=== PATIENT | female | born 1955 | race American Indian/Alaskan Native ===

== ENCOUNTER 2020-02-20 07:23 | Emergency (ER) | payer SELFPAY ==
[2020-02-20] MEDS ORDERED: MINERAL OIL/PETROLATUM, WHITE OPHTH OINT 3.5 GM OU PRN (07:46)
[2020-02-20] MEDS ORDERED: LIP THERAPY VASELINE TP PRN (07:46)
--- NOTE | 2020-02-20 07:52 | Emergency Department Report ---
HPI - General Chief Complaint: Cardiac Arrest/CPR Time Seen by Provider: 02/20/20 07:45 - HPI HPI: 64-year-old -[place]ov[place] female presents to the emergency department via EMS from home in cardiac arrest. Patient was in bed with her when the heard her drop her phone. He started talking to her about picking her phone up off the floor and she looked altered and he thought that she was having a stroke. He called 911 but she became even less responsive and by the time EMS got there she was pulseless and was not breathing. EMS gave her bag valve ventilation, chest compressions, and 2 rounds of epinephrine with some sodium bicarbonate, as part of ACLS. They were working her for about 15 minutes prior to arrival in our emergency department. She has a past medical history of diabetes and previous TIA. ED Past Medical Hx - Past Medical History Previous Medical History?: Yes Hx Diabetes: Yes Additional medical history: TIA - Surgical History Past Surgical History?: Yes Additional Surgical History: Gastric bypass, breast reduction - Social History Smoking Status: Never Smoker Substance Use Type: None ED Review of Systems ROS: Stated complaint: CARDIAC ARREST Other details as noted in HPI Comment: Unobtainable due to pts medical conditions Physical Exam - Physical Exam Physical Exam: GENERAL: Patient is ill-appearing and unresponsive. HENT: Normocephalic. Atraumatic. EYES: Pupils are fixed and dilated. NECK: Supple. Trachea appears midline. CHEST/LUNGS: There are no spontaneous respirations. HEART/CARDIOVASCULAR: There are no spontaneous heart sounds. ABDOMEN: Abdomen is soft. There is no abdominal distention. SKIN: Skin is cool but dry. NEURO: Unresponsive. Does not withdraw to painful stimuli. Does not follow any commands. MUSCULOSKELETAL: There is no obvious deformity. There is no evidence of acute injury. No palpable femoral or radial pulses. ED Course - Reevaluation(s) Reevaluation #1: 02/20/20 14:04 Lab Results 02/20/20 02/20/20 02/20/20 Range/Units 07:45 07:45 07:45 WBC 9.0 (4.5-11.0) K/mm3 RBC 4.55 (3.65-5.03) M/mm3 Hgb 10.7 (10.1-14.3) gm/dl Hct 36.3 (30.3-42.9) % MCV 80 (79-97) fl MCH 24 L (28-32) pg MCHC 30 (30-34) % RDW 14.9 (13.2-15.2) % Plt Count 210 (140-440) K/mm3 Lymph # Final Inspector And Tester Add Manual Diff Complete Total Counted 100 Seg Neuts % (Manual) 28.0 L (40.0-70.0) % Band Neutrophils % 3.0 % Lymphocytes % (Manual) 57.0 H (13.4-35.0) % Reactive Lymphs % (Man) 1.0 % Monocytes % (Manual) 4.0 (0.0-7.3) % Eosinophils % (Manual) 2.0 (0.0-4.3) % Basophils % (Manual) 0 (0.0-1.8) % Metamyelocytes % 5.0 % Myelocytes % 0 % Promyelocytes % 0 % Blast Cells % 0 % Nucleated RBC % Not Reportable Seg Neutrophils # Man 2.5 (1.8-7.7) K/mm3 Band Neutrophils # 0.3 K/mm3 Lymphocytes # (Manual) 5.1 (1.2-5.4) K/mm3 Abs React Lymphs (Man) 0.1 K/mm3 Monocytes # (Manual) 0.4 (0.0-0.8) K/mm3 Eosinophils # (Manual) 0.2 (0.0-0.4) K/mm3 Basophils # (Manual) 0.0 (0.0-0.1) K/mm3 Metamyelocytes # 0.5 K/mm3 Myelocytes # 0.0 K/mm3 Promyelocytes # 0.0 K/mm3 Blast Cells # 0.0 K/mm3 WBC Morphology Not Reportable Hypersegmented Neuts Not Reportable Hyposegmented Neuts Not Reportable Hypogranular Neuts Not Reportable Smudge Cells Not Reportable Toxic Granulation Not Reportable Toxic Vacuolation Not Reportable Dohle Bodies Not Reportable Pelger-Huet Anomaly Not Reportable Hugh Rods Not Reportable Platelet Estimate Consistent w auto Clumped Platelets Not Reportable Plt Clumps, EDTA Not Reportable Large Platelets Not Reportable Giant Platelets Not Reportable Platelet Satelliting Not Reportable Plt Morphology Comment Not Reportable RBC Morphology Normal Dimorphic RBCs Not Reportable Polychromasia Not Reportable Hypochromasia Not Reportable Poikilocytosis Not Reportable Anisocytosis Not Reportable Microcytosis Not Reportable Macrocytosis Not Reportable Spherocytes Not Reportable Pappenheimer Bodies Not Reportable Sickle Cells Not Reportable Target Cells Not Reportable Tear Drop Cells Not Reportable Ovalocytes Not Reportable Helmet Cells Not Reportable [place] Bodies Not Reportable [place] Rings Not Reportable [place] Cells Not Reportable Bite Cells Not Reportable Crenated Cell Not Reportable Elliptocytes Not Reportable Acanthocytes (Spur) Not Reportable Rouleaux Not Reportable Hemoglobin C Crystals Not Reportable Schistocytes Not Reportable Malaria parasites Not Reportable Jagjit Bodies Not Reportable Hem Pathologist Commnt No PT 15.4 H (12.2-14.9) Sec. INR 1.20 H (0.87-1.13) APTT 37.9 H (24.2-36.6) Sec. Sodium 136 L (137-145) mmol/L Potassium 4.0 (3.6-5.0) mmol/L Chloride 100.8 (98-107) mmol/L Carbon Dioxide 12 L (22-30) mmol/L Anion Gap 27 mmol/L BUN 23 H (7-17) mg/dL Creatinine 1.4 H (0.7-1.2) mg/dL Estimated GFR 46 ml/min BUN/Creatinine Ratio 16 % Glucose 405 H (65-100) mg/dL Lactic Acid (0.7-2.0) mmol/L Calcium 9.5 (8.4-10.2) mg/dL Total Bilirubin 0.30 (0.1-1.2) mg/dL AST 514 H (5-40) units/L ALT 388 H (7-56) units/L Alkaline Phosphatase 205 H (35-129) units/L Troponin T < 0.010 (0.00-0.029) ng/mL Total Protein 5.3 L (6.3-8.2) g/dL Albumin 3.0 L (3.9-5) g/dL Albumin/Globulin Ratio 1.3 % TSH (0.270-4.200) mlU/mL Urine Color (Yellow) Urine Turbidity (Clear) Urine pH (5.0-7.0) Ur Specific [place] (1.003-1.030) Urine Protein (Negative) mg/dL Urine Glucose (UA) (Negative) mg/dL Urine Ketones (Negative) mg/dL Urine Blood (Negative) Urine Nitrite (Negative) Urine Bilirubin (Negative) Urine Urobilinogen (<2.0) mg/dL Ur Leukocyte Esterase (Negative) Urine WBC (Auto) (0.0-6.0) /HPF Urine RBC (Auto) (0.0-6.0) /HPF Urine Bacteria (Auto) (Negative) /HPF Urine Opiates Screen Urine Methadone Screen Ur Barbiturates Screen Ur Phencyclidine Scrn Ur Amphetamines Screen U Benzodiazepines Scrn Urine Cocaine Screen U Marijuana (THC) Screen Drugs of Abuse Note Plasma/Serum Alcohol (0-0.07) % 02/20/20 02/20/20 02/20/20 Range/Units 07:45 07:45 08:41 WBC (4.5-11.0) K/mm3 RBC (3.65-5.03) M/mm3 Hgb (10.1-14.3) gm/dl Hct (30.3-42.9) % MCV (79-97) fl MCH (28-32) pg MCHC (30-34) % RDW (13.2-15.2) % Plt Count (140-440) K/mm3 Lymph # Add Manual Diff Total Counted Seg Neuts % (Manual) (40.0-70.0) % Band Neutrophils % % Lymphocytes % (Manual) (13.4-35.0) % Reactive Lymphs % (Man) % Monocytes % (Manual) (0.0-7.3) % Eosinophils % (Manual) (0.0-4.3) % Basophils % (Manual) (0.0-1.8) % Metamyelocytes % % Myelocytes % % Promyelocytes % % Blast Cells % % Nucleated RBC % Seg Neutrophils # Man (1.8-7.7) K/mm3 Band Neutrophils # K/mm3 Lymphocytes # (Manual) (1.2-5.4) K/mm3 Abs React Lymphs (Man) K/mm3 Monocytes # (Manual) (0.0-0.8) K/mm3 Eosinophils # (Manual) (0.0-0.4) K/mm3 Basophils # (Manual) (0.0-0.1) K/mm3 Metamyelocytes # K/mm3 Myelocytes # K/mm3 Promyelocytes # K/mm3 Blast Cells # K/mm3 WBC Morphology Hypersegmented Neuts Hyposegmented Neuts Hypogranular Neuts Smudge Cells Toxic Granulation Toxic Vacuolation Dohle Bodies Pelger-Huet Anomaly Hugh Rods Platelet Estimate Clumped Platelets Plt Clumps, EDTA Large Platelets Giant Platelets Platelet Satelliting Plt Morphology Comment RBC Morphology Dimorphic RBCs Polychromasia Hypochromasia Poikilocytosis Anisocytosis Microcytosis Macrocytosis Spherocytes Pappenheimer Bodies Sickle Cells Target Cells Tear Drop Cells Ovalocytes Helmet Cells [place] Bodies [place] Rings [place] Cells Bite Cells Crenated Cell Elliptocytes Acanthocytes (Spur) Rouleaux Hemoglobin C Crystals Schistocytes Malaria parasites Jagjit Bodies Hem Pathologist Commnt PT (12.2-14.9) Sec. INR (0.87-1.13) APTT (24.2-36.6) Sec. Sodium (137-145) mmol/L Potassium (3.6-5.0) mmol/L Chloride (98-107) mmol/L Carbon Dioxide (22-30) mmol/L Anion Gap mmol/L BUN (7-17) mg/dL Creatinine (0.7-1.2) mg/dL Estimated GFR ml/min BUN/Creatinine Ratio % Glucose (65-100) mg/dL Lactic Acid (0.7-2.0) mmol/L Calcium (8.4-10.2) mg/dL Total Bilirubin (0.1-1.2) mg/dL AST (5-40) units/L ALT (7-56) units/L Alkaline Phosphatase (35-129) units/L Troponin T (0.00-0.029) ng/mL Total Protein (6.3-8.2) g/dL Albumin (3.9-5) g/dL Albumin/Globulin Ratio % TSH 5.170 H (0.270-4.200) mlU/mL Urine Color Straw (Yellow) Urine Turbidity Slightly-cloudy (Clear) Urine pH 7.0 (5.0-7.0) Ur Specific [place] 1.006 (1.003-1.030) Urine Protein 100 mg/dl (Negative) mg/dL Urine Glucose (UA) >=500 (Negative) mg/dL Urine Ketones Neg (Negative) mg/dL Urine Blood Mod (Negative) Urine Nitrite Neg (Negative) Urine Bilirubin Neg (Negative) Urine Urobilinogen < 2.0 (<2.0) mg/dL Ur Leukocyte Esterase Neg (Negative) Urine WBC (Auto) 23.0 H (0.0-6.0) /HPF Urine RBC (Auto) 35.0 (0.0-6.0) /HPF Urine Bacteria (Auto) 1+ (Negative) /HPF Urine Opiates Screen Urine Methadone Screen Ur Barbiturates Screen Ur Phencyclidine Scrn Ur Amphetamines Screen U Benzodiazepines Scrn Urine Cocaine Screen U Marijuana (THC) Screen Drugs of Abuse Note Plasma/Serum Alcohol < 0.01 (0-0.07) % 02/20/20 02/20/20 Range/Units 08:41 09:05 WBC (4.5-11.0) K/mm3 RBC (3.65-5.03) M/mm3 Hgb (10.1-14.3) gm/dl Hct (30.3-42.9) % MCV (79-97) fl MCH (28-32) pg MCHC (30-34) % RDW (13.2-15.2) % Plt Count (140-440) K/mm3 Lymph # Add Manual Diff Total Counted Seg Neuts % (Manual) (40.0-70.0) % Band Neutrophils % % Lymphocytes % (Manual) (13.4-35.0) % Reactive Lymphs % (Man) % Monocytes % (Manual) (0.0-7.3) % Eosinophils % (Manual) (0.0-4.3) % Basophils % (Manual) (0.0-1.8) % Metamyelocytes % % Myelocytes % % Promyelocytes % % Blast Cells % % Nucleated RBC % Seg Neutrophils # Man (1.8-7.7) K/mm3 Band Neutrophils # K/mm3 Lymphocytes # (Manual) (1.2-5.4) K/mm3 Abs React Lymphs (Man) K/mm3 Monocytes # (Manual) (0.0-0.8) K/mm3 Eosinophils # (Manual) (0.0-0.4) K/mm3 Basophils # (Manual) (0.0-0.1) K/mm3 Metamyelocytes # K/mm3 Myelocytes # K/mm3 Promyelocytes # K/mm3 Blast Cells # K/mm3 WBC Morphology Hypersegmented Neuts Hyposegmented Neuts Hypogranular Neuts Smudge Cells Toxic Granulation Toxic Vacuolation Dohle Bodies Pelger-Huet Anomaly Hugh Rods Platelet Estimate Clumped Platelets Plt Clumps, EDTA Large Platelets Giant Platelets Platelet Satelliting Plt Morphology Comment RBC Morphology Dimorphic RBCs Polychromasia Hypochromasia Poikilocytosis Anisocytosis Microcytosis Macrocytosis Spherocytes Pappenheimer Bodies Sickle Cells Target Cells Tear Drop Cells Ovalocytes Helmet Cells [place] Bodies [place] Rings [place] Cells Bite Cells Crenated Cell Elliptocytes Acanthocytes (Spur) Rouleaux Hemoglobin C Crystals Schistocytes Malaria parasites Jagjit Bodies Hem Pathologist Commnt PT (12.2-14.9) Sec. INR (0.87-1.13) APTT (24.2-36.6) Sec. Sodium (137-145) mmol/L Potassium (3.6-5.0) mmol/L Chloride (98-107) mmol/L Carbon Dioxide (22-30) mmol/L Anion Gap mmol/L BUN (7-17) mg/dL Creatinine (0.7-1.2) mg/dL Estimated GFR ml/min BUN/Creatinine Ratio % Glucose (65-100) mg/dL Lactic Acid 4.70 H* (0.7-2.0) mmol/L Calcium (8.4-10.2) mg/dL Total Bilirubin (0.1-1.2) mg/dL AST (5-40) units/L ALT (7-56) units/L Alkaline Phosphatase (35-129) units/L Troponin T (0.00-0.029) ng/mL Total Protein (6.3-8.2) g/dL Albumin (3.9-5) g/dL Albumin/Globulin Ratio % TSH (0.270-4.200) mlU/mL Urine Color (Yellow) Urine Turbidity (Clear) Urine pH (5.0-7.0) Ur Specific [place] (1.003-1.030) Urine Protein (Negative) mg/dL Urine Glucose (UA) (Negative) mg/dL Urine Ketones (Negative) mg/dL Urine Blood (Negative) Urine Nitrite (Negative) Urine Bilirubin (Negative) Urine Urobilinogen (<2.0) mg/dL Ur Leukocyte Esterase (Negative) Urine WBC (Auto) (0.0-6.0) /HPF Urine RBC (Auto) (0.0-6.0) /HPF Urine Bacteria (Auto) (Negative) /HPF Urine Opiates Screen Presumptive negative Urine Methadone Screen Presumptive negative Ur Barbiturates Screen Presumptive negative Ur Phencyclidine Scrn Presumptive negative Ur Amphetamines Screen Presumptive negative U Benzodiazepines Scrn Presumptive negative Urine Cocaine Screen Presumptive negative U Marijuana (THC) Screen Presumptive negative Drugs of Abuse Note Disclamer Plasma/Serum Alcohol (0-0.07) % - Consultations Consultation #1: I spoke with the neurosurgery attending at [facility], Dr. Newman. Dr. Newman looked at the CT imaging results and listen to the case presentation. He does not feel that it is consistent with an actual subdural hemorrhage and has the appearance of advanced anoxic brain injury. He did not feel that this patient is a neurosurgical candidate. 02/20/20 12:13 - ABG Interpretation Ph: 7.366 PCO2: 24 PO2: 410 Bicarbonate: 14 Interpretation: respiratory alkalosis, metabolic acidosis - Central Line Placement Right Femoral Consent Obtained: emergent situation Patient Placed on Monitor/Pulse Ox: Yes MD Prep: mask, gown, gloves Central Line Prep: Chlorhexidine scrub Ultrasound Used for Placement: No Central Line Lumen Inserted: triple Central Line Position: good blood return, all ports aspirated, flus, sutured in place with nyl Dressing Applied: Tegaderm, sterile gauze/tape Patient Tolerated Procedure: well Complications: none - Intubation Time Out Performed: No Sedative: none Laryngoscope: other ([place] scope) Size: 4 ET Tube Size: 7 Tube Secured Depth (cm): 24 Tube Secured Location: lips Tube Placement Confirmation: visualized tube passing t, equal breath sounds bilat, confirmation by capnometr Intubation Complications: none ED Medical Decision Making - Lab Data Result diagrams: 02/20/20 07:45 02/20/20 07:45 - EKG Data -: EKG Interpreted by Me - EKG Data Interpretation: other (Atrial fibrillation, rate of 98 bpm, normal axis, T wave inversions to the anterior and lateral leads, ST depressions to anterior leads) - Radiology Data Radiology results: report reviewed, image reviewed interpreted by me: Chest x-ray shows some mild interstitial edema. ET tube is in appropriate position. CT head/brain wo con INDICATION / CLINICAL INFORMATION: Altered mental status. TECHNIQUE: All CT scans at this location are performed using CT dose reduction for ALARA by means of automated exposure control. COMPARISON: None available. FINDINGS: There appears to be diffuse subarachnoid hemorrhage present. Ventricle size is very small. There is poor differentiation of the brown-white matter. No midline shift is seen. Visualized paranasal sinuses are clear. IMPRESSION: Diffuse subarachnoid hemorrhage with very small ventricles and poor differentiation of the brown-white junction. - Medical Decision Making This patient presents to the emergency department as a cardiac arrest from home. We did 1 round of ACLS protocol and had return of spontaneous circulation. In that time, I intubated the patient. Shortly after ROSC I also placed a central line venous catheter. Chest x-ray shows some pulmonary vascular congestion and appropriate placement of the ET tube. Patient's labs show some renal insufficiency, lactic acidosis, transaminitis consistent with shock liver, hyperglycemia, and a mild urinary tract infection. The patient has received IV fluid resuscitation and intermittently has been on pressors. She was given a dose of Rocephin for the urinary tract infection, IV insulin for the hyperglycemia. Patient had a CT scan of the head without contrast that came back showing diffuse subarachnoid hemorrhage. As per the consultation section, I spoke with the neurosurgery attending who says that this is too advanced for any surgical intervention and does not require transfer. I spoke to the patient's and sister and updated them regarding all the lab and imaging results, as well as the plan for admission to the ICU. Patient was accepted for admission by the hospitalist, Dr Dominguez. Critical Care Time: Yes Critical care time in (mins) excluding proc time.: 75 Critical care attestation.: If time is entered above; I have spent that time in minutes in the direct care of this critically ill patient, excluding procedure time. Critical care time was spent on this patient in doing her initial evaluation, multiple re- evaluations, ordering and interpretation of labs and imaging, discussion with the [facility] neurosurgery attending, discussion with the patient's family, titration of pressors, multiple IV medications. This does not include the time spent doing the intubation and central line procedures. Critical Care Time: 75 minutes ED Disposition Clinical Impression: Cardiac arrest, Subarachnoid hemorrhage, Shock liver Acute respiratory failure Qualifiers: Respiratory failure complication: hypoxia Qualified Code(s): J96.01 - Acute respiratory failure with hypoxia Hypotension Qualifiers: Hypotension type: unspecified hypotension type Qualified Code(s): I95.9 - Hypotension, unspecified Disposition: DC-09 OP ADMIT IP TO THIS HOSP Is pt being admited?: Yes Condition: Critical Time of Disposition: 13:09
[2020-02-20] MEDS ORDERED: NORepinephrine/NS 4 MG-250 ML 4 MG/250 ML BAG IV ONE (07:57)
[2020-02-20 08:22] LABS: Alanine Aminotransferase 388 units/L (7-56); BUN/Creatinine Ratio 16; Blood Urea Nitrogen 23 mg/dL (7-17); Calcium 9.5 mg/dL (8.4-10.2); Hemolysis Index 17
[2020-02-20 08:23] LABS: INR 1.2 (0.87-1.13)
[2020-02-20 08:24] LABS: Partial Thromboplastin Time 37.9 Sec. (24.2-36.6)
[2020-02-20] MEDS ORDERED: INSULIN REGULAR, HUMAN 100 UNITS/1 ML IV ONE (08:31)
[2020-02-20] MEDS ORDERED: SODIUM CHLORIDE 0.9% 1000 ML 1,000 ML IV ONE (08:44)
[2020-02-20] MEDS ORDERED: NORepinephrine/NS 4 MG-250 ML 4 MG/250 ML BAG IV SCH (09:00)
[2020-02-20 09:01] LABS: Hemoglobin 10.7 gm/dl (10.1-14.3)
[2020-02-20 09:04] LABS: Red Blood Count 4.55 M/mm3 (3.65-5.03)
[2020-02-20 09:05] LABS: Hematocrit 36.3 % (30.3-42.9); Mean Corpuscular HGB Conc 30 % (30-34); Mean Corpuscular Volume 80 fl (79-97); Platelet Count 210 K/mm3 (140-440); Red Cell Distribution Width 14.9 % (13.2-15.2)
--- NOTE | 2020-02-20 10:20 | XRay Report ---
CHEST 1 VIEW INDICATION / CLINICAL INFORMATION: ETT placement. COMPARISON: None available. FINDINGS: SUPPORT DEVICES: Endotracheal tube, nasogastric tube HEART / MEDIASTINUM: No significant abnormality. LUNGS / PLEURA: Mild diffuse interstitial pulmonary edema No pneumothorax. ADDITIONAL FINDINGS: No significant additional findings. IMPRESSION: There is mild diffuse interstitial pulmonary edema present. Endotracheal tube is in good position Signer Name: Gorge Ocampo MD FACStephen Signed: 02/20/2020 10:15 AM Workstation Name: [id number]
--- NOTE | 2020-02-20 10:43 | Cat Scan Report ---
CT head/brain wo con INDICATION / CLINICAL INFORMATION: Altered mental status. TECHNIQUE: All CT scans at this location are performed using CT dose reduction for ALARA by means of automated e xposure control. COMPARISON: None available. FINDINGS: There appears to be diffuse subarachnoid hemorrhage present. Ventricle size is very small. There is p oor differentiation of the brown-white matter. No midline shift is seen. Visualized paranasal sinuses are clear. IMPRESSION: Diffuse subarachnoid hemorrhage with very small ventricles and poor differentiation of the brown-white junction. This is a positive critical result discovered at 0934 hours and personally communicated to Sierra Muse the charge nurse at 0937 hours Signer Name: Gorge Ocampo MD FACR Signed: 02/20/2020 10:38 AM Workstation Name: [id number]
[2020-02-20 10:54] LABS: Total Cells Counted 100
[2020-02-20 10:55] LABS: Band Neutrophils # (Manual) 0.3 K/mm3; Basophils % (Manual) 0 % (0.0-1.8); Platelet Estimate Consistent w Auto; RBC Morphology Normal
[2020-02-20 11:18] LABS: Bacteria,Urine 1+ /HPF (Negative); Bilirubin,Urine NEG (Negative); Blood,Urine MOD (Negative); Color,Urine Straw (Yellow); Urobilinogen,Urine < 2.0 mg/dL (<2.0)
[2020-02-20 11:24] LABS: Amphetamine Screen,Urine PRESUMPTIVE NEGATIVE; Benzodiazepines Screen,Urine PRESUMPTIVE NEGATIVE; Cannabinoid Screen,Urine PRESUMPTIVE NEGATIVE; Cocaine Screen,Urine PRESUMPTIVE NEGATIVE; Methadone Screen,Urine PRESUMPTIVE NEGATIVE; Opiate Screen,Urine PRESUMPTIVE NEGATIVE
[2020-02-20] MEDS ORDERED: cefTRIAXone/NS 1 GM/50 ML 1 GM/50 ML BAG IV ONE (11:50)
[2020-02-20] MEDS ORDERED: SODIUM CHLORIDE 0.9% 1000 ML 1,000 ML ONE ×2 (13:13→15:52)
[2020-02-20 13:41] LABS: ABG Base Excess -9.7 mmol/L (-2.0-3.0); ABG Methemoglobin 0.3 % (0.0-1.5); ABG Oxygen Saturation 99.5 % (95.0-99.0); ABG PCO2 24.9 mm Hg; ABG PH 7.366 pH Units (7.350-7.450)
[2020-02-20 13:45] LABS: ABG PO2 410.7 mm Hg (80.0-90.0)
--- NOTE | 2020-02-20 20:44 | History and Physical Report ---
History of Present Illness Date of examination: 02/20/20 Date of admission: 02/20/20 13:09 Medications and Allergies Allergies Allergy/AdvReac Type Severity Reaction Status Date / Time No Known Allergies Allergy Verified 02/20/20 08:40 Active Meds: Active Medications Hydrophilic Ointment (Vaseline Lip Therapy) 1 applic TP Q2HR PRN PRN Reason: Dry Lips Norepinephrine (Levophed Drip 4 Mg/Ns 250 Ml) 4 mg in 250 mls @ 7.5 mls/hr IV TITR CARLOS; Protocol Last Titration: 02/20/20 13:57 Dose: 4 mcg/min, 15 mls/hr Documented by: Multi-Ingred Cream/Lotion/Oil/Oint (Artificial Tears Ophth Oint) 1 applic OU Q4HR PRN PRN Reason: Dry Eye(s) Exam - Constitutional Vitals: Temp Pulse Resp BP Pulse Ox 95.4 F L 106 H 18 87/59 100 02/20/20 08:38 02/20/20 20:00 02/20/20 20:00 02/20/20 20:00 02/20/20 20:00 Results - Labs CBC & Chem 7: 02/20/20 07:45 02/20/20 07:45 Labs: Laboratory Last Values WBC 9.0 K/mm3 (4.5-11.0) 02/20/20 07:45 RBC 4.55 M/mm3 (3.65-5.03) 02/20/20 07:45 Hgb 10.7 gm/dl (10.1-14.3) 02/20/20 07:45 Hct 36.3 % (30.3-42.9) 02/20/20 07:45 MCV 80 fl (79-97) 02/20/20 07:45 MCH 24 pg (28-32) L 02/20/20 07:45 MCHC 30 % (30-34) 02/20/20 07:45 RDW 14.9 % (13.2-15.2) 02/20/20 07:45 Plt Count 210 K/mm3 (140-440) 02/20/20 07:45 Lymph # Government [employer] Specialist 02/20/20 07:45 Add Manual Diff Complete 02/20/20 07:45 Total Counted 100 02/20/20 07:45 Seg Neuts % (Manual) 28.0 % (40.0-70.0) L 02/20/20 07:45 Band Neutrophils % 3.0 % 02/20/20 07:45 Lymphocytes % (Manual) 57.0 % (13.4-35.0) H 02/20/20 07:45 Reactive Lymphs % (Man) 1.0 % 02/20/20 07:45 Monocytes % (Manual) 4.0 % (0.0-7.3) 02/20/20 07:45 Eosinophils % (Manual) 2.0 % (0.0-4.3) 02/20/20 07:45 Basophils % (Manual) 0 % (0.0-1.8) 02/20/20 07:45 Metamyelocytes % 5.0 % 02/20/20 07:45 Myelocytes % 0 % 02/20/20 07:45 Promyelocytes % 0 % 02/20/20 07:45 Blast Cells % 0 % 02/20/20 07:45 Nucleated RBC % Not Reportable 02/20/20 07:45 Seg Neutrophils # Man 2.5 K/mm3 (1.8-7.7) 02/20/20 07:45 Band Neutrophils # 0.3 K/mm3 02/20/20 07:45 Lymphocytes # (Manual) 5.1 K/mm3 (1.2-5.4) 02/20/20 07:45 Abs React Lymphs (Man) 0.1 K/mm3 02/20/20 07:45 Monocytes # (Manual) 0.4 K/mm3 (0.0-0.8) 02/20/20 07:45 Eosinophils # (Manual) 0.2 K/mm3 (0.0-0.4) 02/20/20 07:45 Basophils # (Manual) 0.0 K/mm3 (0.0-0.1) 02/20/20 07:45 Metamyelocytes # 0.5 K/mm3 02/20/20 07:45 Myelocytes # 0.0 K/mm3 02/20/20 07:45 Promyelocytes # 0.0 K/mm3 02/20/20 07:45 Blast Cells # 0.0 K/mm3 02/20/20 07:45 WBC Morphology Not Reportable 02/20/20 07:45 Hypersegmented Neuts Not Reportable 02/20/20 07:45 Hyposegmented Neuts Not Reportable 02/20/20 07:45 Hypogranular Neuts Not Reportable 02/20/20 07:45 Smudge Cells Not Reportable 02/20/20 07:45 Toxic Granulation Not Reportable 02/20/20 07:45 Toxic Vacuolation Not Reportable 02/20/20 07:45 Dohle Bodies Not Reportable 02/20/20 07:45 Pelger-Huet Anomaly Not Reportable 02/20/20 07:45 Hugh Rods Not Reportable 02/20/20 07:45 Platelet Estimate Consistent w auto 02/20/20 07:45 Clumped Platelets Not Reportable 02/20/20 07:45 Plt Clumps, EDTA Not Reportable 02/20/20 07:45 Large Platelets Not Reportable 02/20/20 07:45 Giant Platelets Not Reportable 02/20/20 07:45 Platelet Satelliting Not Reportable 02/20/20 07:45 Plt Morphology Comment Not Reportable 02/20/20 07:45 RBC Morphology Normal 02/20/20 07:45 Dimorphic RBCs Not Reportable 02/20/20 07:45 Polychromasia Not Reportable 02/20/20 07:45 Hypochromasia Not Reportable 02/20/20 07:45 Poikilocytosis Not Reportable 02/20/20 07:45 Anisocytosis Not Reportable 02/20/20 07:45 Microcytosis Not Reportable 02/20/20 07:45 Macrocytosis Not Reportable 02/20/20 07:45 Spherocytes Not Reportable 02/20/20 07:45 Pappenheimer Bodies Not Reportable 02/20/20 07:45 Sickle Cells Not Reportable 02/20/20 07:45 Target Cells Not Reportable 02/20/20 07:45 Tear Drop Cells Not Reportable 02/20/20 07:45 Ovalocytes Not Reportable 02/20/20 07:45 Helmet Cells Not Reportable 02/20/20 07:45 [place] Bodies Not Reportable 02/20/20 07:45 [place] Rings Not Reportable 02/20/20 07:45 [place] Cells Not Reportable 02/20/20 07:45 Bite Cells Not Reportable 02/20/20 07:45 Crenated Cell Not Reportable 02/20/20 07:45 Elliptocytes Not Reportable 02/20/20 07:45 Acanthocytes (Spur) Not Reportable 02/20/20 07:45 Rouleaux Not Reportable 02/20/20 07:45 Hemoglobin C Crystals Not Reportable 02/20/20 07:45 Schistocytes Not Reportable 02/20/20 07:45 Malaria parasites Not Reportable 02/20/20 07:45 Jagjit Bodies Not Reportable 02/20/20 07:45 Hem Pathologist Commnt No 02/20/20 07:45 PT 15.4 Sec. (12.2-14.9) H 02/20/20 07:45 INR 1.20 (0.87-1.13) H 02/20/20 07:45 APTT 37.9 Sec. (24.2-36.6) H 02/20/20 07:45 ABG pH 7.366 pH Units (7.350-7.450) 02/20/20 13:25 ABG pCO2 24.9 mm Hg 02/20/20 13:25 ABG pO2 410.7 mm Hg (80.0-90.0) H 02/20/20 13:25 ABG HCO3 14.0 mmol/L (20.0-26.0) L 02/20/20 13:25 ABG O2 Saturation 99.5 % (95.0-99.0) H 02/20/20 13:25 ABG O2 Content 18.3 (0.0-44) 02/20/20 13:25 ABG Base Excess -9.7 mmol/L (-2.0-3.0) L 02/20/20 13:25 ABG Hemoglobin 12.4 gm/dl (12.0-16.0) 02/20/20 13:25 ABG Carboxyhemoglobin 0.0 % (0.0-5.0) 02/20/20 13:25 ABG Methemoglobin 0.3 % (0.0-1.5) 02/20/20 13:25 Oxyhemoglobin 99.1 % (95.0-99.0) H 02/20/20 13:25 FiO2 10 % 02/20/20 13:25 Sodium 136 mmol/L (137-145) L 02/20/20 07:45 Potassium 4.0 mmol/L (3.6-5.0) 02/20/20 07:45 Chloride 100.8 mmol/L (98-107) 02/20/20 07:45 Carbon Dioxide 12 mmol/L (22-30) L 02/20/20 07:45 Anion Gap 27 mmol/L 02/20/20 07:45 BUN 23 mg/dL (7-17) H 02/20/20 07:45 Creatinine 1.4 mg/dL (0.7-1.2) H 02/20/20 07:45 Estimated GFR 46 ml/min 02/20/20 07:45 BUN/Creatinine Ratio 16 % 02/20/20 07:45 Glucose 405 mg/dL (65-100) H 02/20/20 07:45 POC Glucose 182 (70-105) H 02/20/20 19:06 Lactic Acid 4.70 mmol/L (0.7-2.0) H* 02/20/20 09:05 Calcium 9.5 mg/dL (8.4-10.2) 02/20/20 07:45 Total Bilirubin 0.30 mg/dL (0.1-1.2) 02/20/20 07:45 AST 514 units/L (5-40) H 02/20/20 07:45 ALT 388 units/L (7-56) H 02/20/20 07:45 Alkaline Phosphatase 205 units/L (35-129) H 02/20/20 07:45 Troponin T < 0.010 ng/mL (0.00-0.029) 02/20/20 07:45 Total Protein 5.3 g/dL (6.3-8.2) L 02/20/20 07:45 Albumin 3.0 g/dL (3.9-5) L 02/20/20 07:45 Albumin/Globulin Ratio 1.3 % 02/20/20 07:45 TSH 5.170 mlU/mL (0.270-4.200) H 02/20/20 07:45 Urine Color Straw (Yellow) 02/20/20 08:41 Urine Turbidity Slightly-cloudy (Clear) 02/20/20 08:41 Urine pH 7.0 (5.0-7.0) 02/20/20 08:41 Ur Specific [place] 1.006 (1.003-1.030) 02/20/20 08:41 Urine Protein 100 mg/dl mg/dL (Negative) 02/20/20 08:41 Urine Glucose (UA) >=500 mg/dL (Negative) 02/20/20 08:41 Urine Ketones Neg mg/dL (Negative) 02/20/20 08:41 Urine Blood Mod (Negative) 02/20/20 08:41 Urine Nitrite Neg (Negative) 02/20/20 08:41 Urine Bilirubin Neg (Negative) 02/20/20 08:41 Urine Urobilinogen < 2.0 mg/dL (<2.0) 02/20/20 08:41 Ur Leukocyte Esterase Neg (Negative) 02/20/20 08:41 Urine WBC (Auto) 23.0 /HPF (0.0-6.0) H 02/20/20 08:41 Urine RBC (Auto) 35.0 /HPF (0.0-6.0) 02/20/20 08:41 Urine Bacteria (Auto) 1+ /HPF (Negative) 02/20/20 08:41 Urine Opiates Screen Presumptive negative 02/20/20 08:41 Urine Methadone Screen Presumptive negative 02/20/20 08:41 Ur Barbiturates Screen Presumptive negative 02/20/20 08:41 Ur Phencyclidine Scrn Presumptive negative 02/20/20 08:41 Ur Amphetamines Screen Presumptive negative 02/20/20 08:41 U Benzodiazepines Scrn Presumptive negative 02/20/20 08:41 Urine Cocaine Screen Presumptive negative 02/20/20 08:41 U Marijuana (THC) Screen Presumptive negative 02/20/20 08:41 Drugs of Abuse Note Disclamer 02/20/20 08:41 Plasma/Serum Alcohol < 0.01 % (0-0.07) 02/20/20 07:45
[2020-02-20 23:47] VITALS: BP 104/61
--- NOTE | 2020-02-20 23:58 | Event Note ---
Date: 02/20/20 See history and physical in the reports Subarachnoid hemorrhage S/p cardiac arrest Anoxic brain injury Hypotension Very poor prognosis
--- NOTE | 2020-02-20 23:58 | Death Summary ---
Summary - Providers Date of service: 02/20/20 Attending: Carlos Manuel [email or web address] summary dictated
--- NOTE | 2020-02-21 00:21 | Discharge Summary ---
SUMMARY HOSPITAL COURSE: The patient was brought in cardiac arrest, was revived. The patient was started on IV Levophed. The patient's pupils were fixed and dilated. The patient's blood pressure improved with Levophed. Unresponsive totally. Not moving any of her extremities. Discussed with about withdrawal of life support to which he agreed. After reasonable explanation of the patient's condition. The patient had severe subarachnoid hemorrhage and no neurosurgery was accepting the patient because nothing much could be done. The patient around 23 hours. Exact time not noted. Exact time will be added as an addendum. CAUSE OF : 1. Cardiorespiratory arrest. 2. Subarachnoid hemorrhage. 3. Respiratory failure. Family counseled. JOB# [id number] AHSAN/SHAKEEL
--- NOTE | 2020-02-21 00:28 | History and Physical Report ---
CHIEF COMPLAINT: Status post cardiac arrest. HISTORY OF PRESENT ILLNESS: A 64-year-old brought in by EMS for cardiac arrest. The patient was in bed with her when the heard to drop her phone. The patient looked unresponsive, because of which he called the EMS. When the EMS arrived, the patient was pulseless and was not breathing. EMS gave bag valve ventilation chest compressions and 2 rounds of epinephrine with sodium bicarbonate as part of ACLS. In the Emergency Room, the patient was intubated. Post-intubation, the patient was hypotensive with pupils dilated and fixed. Workup in the Emergency Room revealed subarachnoid hemorrhage. Diffuse subarachnoid hemorrhage with small ventricles and poor differentiation of the brown-white junction. This was communicated 0934 hours. PAST MEDICAL HISTORY: Diabetes and TIA. PAST SURGICAL HISTORY: Gastric bypass and breast reduction. SOCIAL HISTORY: Never smoker. FAMILY HISTORY: Hypertension. REVIEW OF SYSTEMS: Could not be done. The patient has been in cardiac arrest and was revived with ACLS protocol and intubated. PHYSICAL EXAMINATION: GENERAL: Young elderly female, unresponsive totally. VITAL SIGNS: Temperature 95.4, pulse is 128, respirations are 16, sats 100%, blood pressure 138/82 which has dropped to 79/49. HEENT: Pupils dilated and fixed. NECK: Supple, no lymphadenopathy, no thyromegaly. LUNGS AND CHEST: No rhonchi. No rales. CARDIOVASCULAR: S1, S2 heard. No gallop, no murmur, no rub. Apical impulse in left fifth intercostal space and midclavicular line. ABDOMEN: Soft and benign. No hepatosplenomegaly. No guarding, no rigidity. Hernial orifices are normal. EXTREMITIES: Good pedal pulses. CENTRAL NERVOUS SYSTEM: Decreased and unresponsive. The patient is intubated. LABORATORY DATA: Significant for white count of 9000, H and H is 10.7 and 36.3, platelet count is 210,000. Protime is 15.4, INR is 1.2, PTT is 37.9. ABG significant for pH of 7.366, pCO2 of 24.9, pO2 of 410, bicarbonate of 14, O2 sat of 99.5%. Lactic acid is 4.7. Sodium is 136, potassium is 4.0, bicarbonate is 12, BUN and creatinine is 23 and 1.4, AST is 514, ALT is 388. Alkaline phosphatase is 205. Albumin is 3.0. Drug screen is negative. White blood cells 23 in the urine. DIAGNOSTIC DATA: Head CT shows diffuse subarachnoid hemorrhage with very small ventricles and poor differentiation of the brown-white junction. There are positive critical results were discovered at 0935 hours and communicated to Sierra Muse, the charge nurse. Chest x-ray, there is mild diffuse interstitial pulmonary edema with endotracheal tube in place. ASSESSMENT AND PLAN: 1. Status post cardiac arrest, revived. The patient intubated. 2. Hypotension secondary to cardiac arrest. The patient on Levophed. Continue Levophed for pressor support. We will talk with the family and about DNR and withdrawing or care. 3. Acute respiratory failure with hypoxia. The patient intubated on ventilator. Continue vent support. Subarachnoid hemorrhage. An attempt was made to transfer to [place] or [facility], but the neurosurgeons refused the patient because they could not do anything much. 4. Deep venous thrombosis prophylaxis, on sequential compression devices. In summary, the patient has cardiac arrest, hypotension, respiratory arrest and acute hepatic failure secondary to cardiogenic shock causing hepatic failure. Very poor prognosis. Discussed with the family about withdrawal of life support. JOB# [id number] AHSAN/NTS
== END 2020-02-21 04:00 | disposition admitted as inpatient to this hospital (09) ==
LOC: ED 07:23 → CC1 13:09 → UNDOADMIN 13:09 → ED 02-21 04:00
DX: I46.9 Cardiac arrest, cause unspecified (principal); J96.00 Acute respiratory failure, unspecified whether with hypoxia or hypercapnia; I60.9 Nontraumatic subarachnoid hemorrhage, unspecified; K72.00 Acute and subacute hepatic failure without coma; I95.9 Hypotension, unspecified; E11.9 Type 2 diabetes mellitus without complications; Z86.73 Personal history of transient ischemic attack (TIA), and cerebral infarction without residual deficits; Z98.890 Other specified postprocedural states
CPT/HCPCS: 31500; 36415; 70450; 71045; 80053; 80307; 81001; 82140; 82803; 82962; 84443; 84484; 85007; 85025; 85610; 85730; 87070; 87086; 87205; 92950; 93005; 93010; 96365; 96366; 96368; 96375; 99291; J0696; J7030; 80320; 94002; G0480; J1815